=== PATIENT | male | born 1945 | race Caucasian/White ===

== ENCOUNTER 2016-11-24 16:39 | Inpatient (IN) | payer BC, SELFPAY ==
[~2016-11-24] VITALS: Ht 185.4 cm; Wt 103.5 kg
[2016-11-24 18:30] VITALS: BP 139/92
[2016-11-24 19:08] LABS: ABG BASE EXCESS -1.1 (-2.0-2.0); ABG HCO3 22.3 MEQ/L (22.0-26.0); ABG PARTIAL PRESSURE CO2 33.7 mmHg (35.0-45.0); ABG PARTIAL PRESSURE O2 83.4 mmHg (75.0-100.0); ABG STANDARD HCO3 23.5 MEQ/L (22.0-26.0); ABG TOTAL CO2 23.3 MEQ/L (23.0-31.0); ABG pH (ARTERIAL) 7.438 UNITS (7.350-7.450)
[2016-11-24] MEDS ORDERED: diltiaZEM 125 MG in NS 100 ML IV SCH (19:45)
[2016-11-24 20:00] VITALS: BP 122/62
[2016-11-24] MEDS ORDERED: VITA500046 PO (20:16)
[2016-11-24] MEDS ORDERED: ASPI1TAB15 PO (20:16)
[2016-11-24 21:00] VITALS: BP 129/84
[2016-11-24] MEDS ORDERED: CHLORHEXIDINE GLUCONATE 0.12 % 15ML UDC (PERIDEX ORAL RINSE) MT SCH (21:00)
[2016-11-24 22:00] VITALS: BP 115/73
[2016-11-24 23:00] VITALS: BP 99/66
[2016-11-24] MEDS ORDERED: ENOXAPARIN 100MG/1ML SYRINGE (J1650) SC ONE (23:00)
[2016-11-25] VITALS (13 sets, daily range): BP systolic 89–136; BP diastolic 55–85
--- NOTE | 2016-11-25 00:22 | HPE ---
DATE OF ADMISSION: 11/24/2016 PRIMARY CARE PROVIDER: None. CHIEF COMPLAINT: Altered mental status. HISTORY OF PRESENT ILLNESS: Patient is a 71-year-old male with no significant past medical history who passed out [place]. Patient reported feeling lightheaded just before; however, he was levy enough because someone caught him and lowered him down. He lost consciousness for a few seconds; however, when he woke up he was confused and noncoherent for a while. His at the bedside also reported that he had bitten his tongue as well. She also mentioned that in the month of July patient had passed out at the time and it was discovered that his blood sugar was low. He had Holter monitoring for 24 hours during which time an irregular heart beat was discovered. Patient was recommended to followup with a marketing and public relations manager, which he is yet to accomplish. reports that he does not take medications and avoids it at any cost. He denies currently any headache or dizziness and no head trauma. No shortness of breath, chest pain, cough, fever, chills. REVIEW OF SYSTEMS: 10-point systems assessed are negative except listed above in history of present illness (HPI). PAST MEDICAL HISTORY: Hypoglycemia. PAST SURGICAL HISTORY: None. FAMILY HISTORY: Many cancers including prostate, breast, bone, liver and a deep venous thrombosis (DVT) in a brother. SOCIAL HISTORY: Patient is an ex-smoker, quit 30 years ago. Drinks a few beers daily. Denies recreational drug use. He is , has five children, all grown up. 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 ALLERGIES TO MEDICATIONS: None. LIST OF MEDICATIONS: - baby aspirin - vitamin D PHYSICAL EXAMINATION: VITAL SIGNS: Blood pressure 129/84, pulse 94, respiratory rate 18, oxygen saturation 98% in room air, temperature 97.3 degrees Fahrenheit. GENERAL: He is alert, oriented to person, place, time and circumstance, no distress. HEENT: Pupils are equal, round and reactive to light. Extraocular muscles are intact. Anicteric sclerae. Mucous membranes are moist. Neck is supple, nontender. No jugular venous distention (JVD) or adenopathy noted. CARDIOVASCULAR SYSTEM: S1, S2 present with irregular rate. No carotid bruit. Pulses are palpable in all extremities. RESPIRATORY SYSTEM: Lungs are clear to auscultation bilaterally. GASTROINTESTINAL: Abdomen is soft, nontender, nondistended. Bowel sounds are normal. No guarding or rebound. RECTAL: Exam deferred. GENITOURINARY: Exam deferred. MUSCULOSKELETAL SYSTEM: No edema, cyanosis or calf tenderness. SKIN: Warm, dry, acyanotic without rash. LABORATORIES: Hematology: White blood cell count 8.3, hemoglobin 15, hematocrit 42, platelets 201. Coagulopathy: INR 1.10, PT 10.6. Troponin less than 0.017 and less than 0.02. Chemistry is within normal limits. BNP 529. Anion gap 14. Liver function tests within normal limits. EKG is atrial fibrillation at 125 beats per minute. Echocardiogram is pending, ordered. Electroencephalogram (EEG) ordered as well. IMPRESSION: Includes: 1. Syncope. 2. Suspect seizure as well. 3. New onset atrial fibrillation. 4. History of hypoglycemia. 5. History of obesity. PLAN: Patient is admitted to intensive care unit (ICU). Continued intravenous (IV) Cardizem drip at 5 mg/h to be titrated as needed either up or down to maintain a heart rate less than or equal to 95. He was given a dose of Lovenox. CHADS2 score is 0, which puts him at a low risk for CVA. Business Process Manager, Dr. Poe has been consulted. Case discussed with him. He will see the patient in the morning. Please followup troponin in the morning. Deep venous thrombosis (DVT) prophylaxis with Lovenox. Consider consulting neurology if EEG is remarkable.
[2016-11-25 04:45] LABS: MEAN CORPUSCULAR HEMOGLOBIN 32.4 pg (27.0-33.0); MEAN CORPUSCULAR HGB CONC 34.8 g/dl (32.0-36.5); MEAN CORPUSCULAR VOLUME 93.1 fl (80.0-96.0); RED CELL DISTRIBUTION WIDTH 13.8 % (11.5-14.5); WHITE BLOOD COUNT 7.6 K/mm3 (4.0-10.0)
[2016-11-25 05:05] LABS: ANION GAP 5 MEQ/L (8-16); BLOOD UREA NITROGEN 12 MG/DL (7-18); CALCIUM LEVEL 8.1 MG/DL (8.8-10.2); CARBON DIOXIDE LEVEL 29 MEQ/L (21-32); CHLORIDE LEVEL 109 MEQ/L (98-107); CREATININE FOR GFR 1.04 MG/DL (0.70-1.30); GLOMERULAR FILTRATION RATE > 60.0 (>49); GLUCOSE, FASTING 105 MG/DL (80-110); POTASSIUM SERUM 4.2 MEQ/L (3.5-5.1); SODIUM LEVEL 143 MEQ/L (136-145)
[2016-11-25] MEDS ORDERED: METOPROLOL TART 25 MG TABLET PO ONE (07:15)
[2016-11-25] MEDS ORDERED: METOPROLOL TART 25 MG TABLET PO SCH ×3 (09:00→21:00)
[2016-11-25] MEDS ORDERED: ENOXAPARIN 30 MG/0.3 ML SYR (J1650) SC SCH (09:00)
[2016-11-25] MEDS ORDERED: ASPIRIN 81 MG ENTERIC TAB PO SCH (09:00)
--- NOTE | 2016-11-25 11:23 | CR ---
DATE OF CONSULTATION: 11/25/2016 REFERRING PHYSICIAN: Dr. Barillas REASON FOR CONSULTATION: Loss of consciousness. HISTORY OF PRESENT ILLNESS: Umesh Estrada is a 71-year-old man who was at his baseline state of health until yesterday when he was at [employer]. He was in his backyard with his friend and grandson. He suddenly felt lightheaded and dizzy and passed out. His friend was able to catch him and ease him to the ground. He stated that he had foaming his mouth and bit his tongue. There was no shaking. He does not know whether his body was stiff. He woke up in the ambulance. He was unconscious for 30 to 45 minutes in total. He states that in July 2016 at work he had whole body shakes, including his torso, arms and legs without loss of consciousness. It lasted for 30 minutes. Five or six years ago he had an episode of seizure. He lost consciousness for 5 hours. He states that he had tongue biting and foaming of his mouth. He was diagnosed with a generalized tonic-clonic seizure at that time. He is not sure whether he had stiffness or shaking of his body at that time. He saw a neurologist, Dr. Cohen, in [place], [place]. All of his tests were normal. His heart testing was also normal at that time. He was found to have low blood sugar. His blood sugar was 19 on one occasion 2 hours after he had a glucose tolerance test. In July 2016 he had a Holter monitor for 48 hours. He was found to have irregular heartbeat. Now he has been found to have atrial fibrillation. This was likely the case in July 2016. No medications were started. He is yet to followup or see a software developer consultant. PAST MEDICAL HISTORY: Hypoglycemia FAMILY HISTORY: Significant for prostate, breast, bone, and liver cancer. Brother had deep vein thrombosis (DVT). SOCIAL HISTORY: He quit smoking 30 years ago. He drinks a few beers daily. He denies illicit drugs. 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 PAST SURGERIES: None. ALLERGIES: None. HOME MEDICATIONS: - aspirin 81 mg by mouth daily - vitamin D PHYSICAL EXAMINATION: Blood pressure 121/65, pulse 78, respiratory 18, temperature 97.6, 98% saturation on room air. HEART: Irregularly irregular. LUNGS: Clear to auscultation. No pedal edema. Peripheral pulses are palpable. MUSCULOSKELETAL: No gross musculoskeletal abnormalities. EARS, NOSE, THROAT: Examination is within normal limits. NEUROLOGIC EXAMINATION: The patient is awake, alert, oriented to place, person and time. Normal recent and distant memory. Normal speech, comprehension and repetition. No tremor. No dysmetria. Extraocular muscles are intact. No facial weakness. Tongue and uvula are midline. 5/5 strength in all four extremities. Deep tendon reflexes are 2+ throughout. Normal sensation. Gait is normal. ASSESSMENT 1. Episodes of passing out, possibly related to low blood sugar. There is concern for seizures. 2. New-onset atrial fibrillation. PLAN 1. EEG as an outpatient. 2. The patient can followup with his neurologist, Dr. Cohen, as he lives in [place], [place]. He is aware that he should not be driving. 3. He must see cardiology. 4. Antiepileptic medication only if his EEG is suggestive of epilepsy. Hypoglycemia can induce syncope and his hypoglycemia needs to be addressed first.
[2016-11-25] MEDS: METOPROLOL TART 25 MG TABLET PO SCH ×2 (12:11→18:12)
--- NOTE | 2016-11-25 13:48 | ECHO ---
DATE OF STUDY: 11/25/2016 TWO-DIMENSIONAL ECHOCARDIOGRAM REFERRING PHYSICIAN: Dr. Barillas and Dr. Jensen INDICATION: Atrial fibrillation and syncope. Patient measures 73 inches and weighs 228 pounds. DIMENSIONS: IVS 1.2 LV 4.5 LVPW 1.2 LA 4.5 Aorta 3.6 Ascending aorta 3.5 RV 3.5 in apical four-chamber view LV systolic 3.0 FINDINGS: The study is of good technical quality. The patient is in atrial fibrillation with controlled rate. Left ventricle is of normal size. There is global hypokinesis with overall estimated EF around 45%. No segmental wall motion abnormalities are noted. Mild LVH is present. Right ventricle appears to be mildly dilated but normally contractile. Both atria are enlarged. Left atrial volume index is 38 ml/m2 corresponding to moderate left atrial enlargement. Aortic, mitral, tricuspid and pulmonic valves were all well seen and appear normal. No pericardial effusion is noted. Inferior vena cava is dilated and there is no appreciable collapse with respiration indicative likely significantly elevated central venous pressure. Aortic root, aortic arch appear normal. Abdominal aorta was not visualized. Doppler interrogation reveals no aortic stenosis or insufficiency. There is trace mitral and trace tricuspid insufficiency. Calculated pulmonary artery pressure is within normal limits even assuming elevated CVP. But quality of TR jet was poor and this should not be considered overly reliable. Pulmonic valve is functionally competent. Evaluation of diastolic function is inconclusive due to underlying atrial fibrillations. But tissue Doppler velocity of mitral annulus are relatively preserved (E prime septal 9.3 cm/sec, E prime lateral 10.5 cm/sec). CONCLUSIONS: 1. Study is of good technical quality. 2. Normal LV size with mild LVH and approximately moderate LV systolic dysfunction that is global in nature. 3. No significant valvular disease. 4. Biatrial enlargement. 5. Elevated central venous pressure. 6. Pulmonary artery pressure is not reliably determined. COMMENT: SBE prophylaxis is not recommended. CC: Ishaan Copeland MD - [facility]
--- NOTE | 2016-11-25 15:00 | IPN ---
DATE OF SERVICE: 11/25/2016 PRIMARY CARE PROVIDER: Rosemarie Merino PRODUCTION MACHINE COMPUTER OPERATOR: Dr. Copeland Patient seen and examined. No acute events overnight. Patient denies any chest pain, pressure, discomfort, fevers, or chills. No further syncopal episode. Denies any chest pain, pressure, or discomfort. Tolerating oral. No lightheadedness. No nausea or vomiting. As per patient does report tongue biting as per patient, patient had a grand mall seizure about 3-4 years ago, was contributing to hypoglycemia. Patient does not have diabetes, but has been suspected to have some kind of pancreatic disorder with intermittent hypoglycemic, instructed to modify diet to small frequent meals. Patient had a full work-up including abdominal CT about 3-4 years ago. About 3 months ago patient had an episode of lightheadedness suspected to be also hypoglycemia, but never verified taking some oral with food with resolution and patient during this episode did not notice any tonic-colonic movement, but does report a tongue biting. Finger stick and [facility] has been negative. Patient had just finished pancakes and well as syrup breakfast. Patient was found to have atrial fibrillation with regular rate not on any beta jordi or anticoagulation. In the past was following with cardiology. No history of stoke. VITAL SIGNS: Temperature 97.8, pulse 87, respirations 16, blood pressure 118/80, pulse oximetry 97% on room air. LABORATORY DATA: WBC 7.6, hemoglobin and hematocrit 14.9 over 42.8, platelets 169. Chemistry: Sodium 143, potassium 4.2, chloride 109, bicarbonate 29, BUN 12, creatinine 1.04. Troponin negative times two. Thyroid function still pending. PHYSICAL EXAMINATION: GENERAL: Patient alert and oriented times three, in no acute distress. HEENT: Normocephalic, atraumatic. PULMONARY: Bilaterally clear to auscultation. CARDIAC: Irregular irregular, non-tachycardia, no murmurs detected. ABDOMEN: Soft, nontender, nondistended. Positive bowel sounds. EXTREMITIES: No edema bilateral lower extremities. ASSESSMENT AND PLAN: This is a 71-year-old male patient with no significant past medical history. Questionable hypoglycemia history with question seizure due to hypoglycemia presented with syncope, possible seizure. PROBLEMS: 1. Syncope. Possibly secondary to seizure, might be related to hypoglycemia, but has no documented low sugar. Patient will need further outpatient monitoring and work-up. Syncope work-up including MRI has been ordered. Outpatient followup with neurology. Neurology has been consulted. Outpatient EEG. Hold off antiepileptic drugs prior to confirmation with EEG. Avoid driving. Neuro checks. 2. New onset atrial fibrillation. Patient has a MAULIK-VAS score of 1. We will recommend putting the patient on 81 of aspirin and metoprolol. Patient has been weaned off Cardizem drip, currently on metoprolol. 3. History of hypoglycemia. Will need further outpatient work-up given it could be the potential cause of syncope and seizure. 4. Obesity complicating care. Deep venous thrombosis (DVT) prophylaxis. Lovenox subcutaneous. DISPOSITION: Planning pending cardiology and neurology followup. Likely discharged when MRI and echoes are complete.
--- NOTE | 2016-11-25 15:31 | CR ---
DATE OF CONSULTATION: 11/25/2016 REFERRING PHYSICIAN: Dr. Jensen I was asked to see Mr. Estrada because of syncopal event and atrial fibrillation. He is a pleasant 71-year-old male who has minimal past medical history. He presented to initially emergency room at [facility] on 11/24/2016 after he suffered a loss of consciousness at home. [place] [address] and apparently because the weather was not good, he had a rather prolonged breakfast that was quite heavy. After about 2 hours of sitting or so, he actually went outside and was doing some light work. He was on his feet approximately 15 minutes when he suddenly realized that he was discoordinated and he was not able to perform the work that he was doing, and suddenly felt unwell. He managed to tell his family that he was not feeling well but then lost consciousness. He actually was caught so he did not fall to the ground. He apparently was incoherent for a prolonged period of time, at least 15 minutes or so, even though true loss of consciousness was probably quite brief. The family reportedly did not notice any tonic-clonic seizure activity. There was no loss of bowel or urine control, but he bit his tongue to some degree. On arrival of emergency medical service representative (EMT), he was alert but was not completely oriented. His vital signs were unremarkable. There was no extreme lila or tachycardia documented and blood pressure was in normal range. On arrival to emergency room in [facility], his blood pressure was documented at 101/72 and heart rate 113, he was saturating 96%. He was briefly evaluated and transferred to our facility. He was initially started on IV Cardizem drip for atrial fibrillation with rapid ventricular response (RVR) but then it was discontinued this morning and he was started on metoprolol. At the time of my interview, the patient feels well. He denies any palpitations, feeling hungry, diaphoresis or chest pain prior to loss of consciousness. The patient does report one similar episode approximately 5 years ago. Back then , he apparently had tonic-clonic seizure. The scenario was similar to the event yesterday. He'd had a large breakfast at his cottage and then he went fishing with his sons. They did not make it very far from the dock when he felt unwell, he wanted to drink some water and then while standing in a boat, collapsed. He reportedly had extensive cardiac evaluation by Dr. Copeland that included echocardiogram, stress testing and prolonged monitoring without any abnormality found. He was subsequently seen by neurology, Dr. Cohen, in [place], who found no evidence for seizure activity. It was suggested that the event was due to hypoglycemia. He was seen by retail advisor and had severe hypoglycemia without LOC 2 hours into OGTT. 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 He noted that both his upper and lower extremities and torso developed uncontrollable but fine tremor. He got really alarmed, but because he felt otherwise well, he did not panic. He took something sweet to eat and went to see his retail advisor. By the time he reached the office, he did not have any problems. Glucose at that time was normal. He was then seen for a Holter monitor because irregular heartbeat was documented during the physical exam and apparently atrial fibrillation was diagnosed. He was offered anticoagulation and referral to cardiology, but he decided to wait until he saw his primary care physician around early October. Again, he was left on aspirin only and referral to Dr. Copeland was made but the appointment did not occur as yet. PAST MEDICAL HISTORY: 1. He has a history of prostate biopsy for elevated prostate-specific antigen (PSA) and apparently 1 out of 12 samples was positive for cancer with low Apurva score. 2. He reports in the last few office visits, his blood pressure was borderline elevated, but he was never formally diagnosed as having hypertension. 3. He denies diabetes, thyroid problems, history of stroke, history of bleeding problems. PAST SURGICAL HISTORY: Negative. SOCIAL HISTORY: The patient is . He is the father of five children. He used to smoke but quit approximately 30 years ago. He has typically two drinks a day. Denies any excessive alcohol use recently. CPA. FAMILY HISTORY: He is out of 11 children. Apparently there was a lot of prostate and breast cancer in his brothers and sisters respectively. No first-degree relatives with stroke, atrial fibrillation or coronary artery disease. OUTPATIENT MEDICATIONS: - aspirin 81 mg a day - vitamin D 5000 units a day ALLERGIES: No allergies. REVIEW OF SYSTEMS: No recent fever, chills, nausea, vomiting, diarrhea. No palpitations. No syncope, near syncope other than as per history of the present illness. No chest pain. No history of bleeding problems. No unusual headaches. No orthopedic issues. Genitourinary symptoms are negative, but he had prostate cancer as above. No peripheral edema. No skin lesions. The rest is negative. PHYSICAL EXAMINATION: Mr. Estrada is a pleasant man who appears actually younger than his calendar age. Last set of vital signs: Blood pressure 121/65, heart rate in 70s. He is afebrile. Saturation 98% on room air. HEENT is unremarkable. His jugular venous pressure (JVP) is not elevated. No carotid bruit. Lungs are clear to auscultation with good air movement. Heart: Exam reveals irregular rhythm. I do not appreciate any gallop, rub or murmur. Apical impulse is not displaced. Abdomen is soft. No tenderness. No hepatosplenomegaly. Bowel sounds are positive and good quality. Extremities have good peripheral pulses and no peripheral edema. Neurologically he is intact. LABORATORY DATA: Normal CBC, normal basic metabolic panel, troponin negative times three, considering labs from [facility], his BNP was slightly over 500 at [facility]; it was not repeated in our facility. There are several ECGs, all from [facility] and all revealing atrial fibrillation with mildly uncontrolled rate with heart rates just in the 100-130 range and no nonspecific ST-T abnormalities. Chest x-ray is unremarkable and CT of the head was also interpreted as an unremarkable. Echocardiogram performed earlier today revealed normal left ventricular (LV) size with approximately moderate global LV systolic dysfunction, no significant valvular disease and moderate biatrial enlargement (left atrial volume index 38 mL per meter square). ASSESSMENT AND PLAN: Mr. Estrada is a 71-year-old man who presented with syncopal event. The etiology at this point is not completely clear, but it does sound to me that the orthostatic mechanism was likely. Undoubtedly atrial fibrillation with probably uncontrolled rate contributed. 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 At this point, I recommend the patient gets full anticoagulation. Even though his CHADS-Vasc score is positive only for age, but he also has reduced LV systolic function and probably hypertension. Consequently, I think apixaban or similar novel anticoagulation (NOAC) is appropriate. I recommended to the patient that he discontinues his daily aspirin use. We will continue rate control, and I agree with using metoprolol. He is currently on 25 mg every 6 hours with holding parameters, and this approach seems to be effective. I would recommend to continue monitoring on telemetry at least one or two more days. Provided no further arrhythmias will be seen, he can be discharged home while rate controlled. He already has scheduled followup with Dr. Copeland in [place], and I will make sure that he learns about this situation. Further management will depend on his preference. In my opinion, use of antiarrhythmics to be followed by DC cardioversion or even atrial fibrillation ablation can certainly be considered. I will follow the patient with you while he stays in the hospital. Copies To: Dr. Ishaan Copeland, [facility], [place], [place] Dr. Roman Merino in [facility]
[2016-11-25] MEDS: APIXABAN 5 MG TAB (ELIQUIS) PO SCH (20:01)
[2016-11-26] VITALS: BP 112/62
[2016-11-26] MEDS: METOPROLOL TART 25 MG TABLET PO SCH ×2 (00:17→05:23)
[2016-11-26 04:00] VITALS: BP 122/68
[2016-11-26 04:37] LABS: MEAN CORPUSCULAR HEMOGLOBIN 32.5 pg (27.0-33.0); MEAN CORPUSCULAR HGB CONC 34.7 g/dl (32.0-36.5); MEAN CORPUSCULAR VOLUME 93.8 fl (80.0-96.0); RED CELL DISTRIBUTION WIDTH 13.7 % (11.5-14.5); WHITE BLOOD COUNT 5.6 K/mm3 (4.0-10.0)
[2016-11-26 05:13] LABS: ANION GAP 7 MEQ/L (8-16); BLOOD UREA NITROGEN 15 MG/DL (7-18); CALCIUM LEVEL 8.3 MG/DL (8.8-10.2); CARBON DIOXIDE LEVEL 26 MEQ/L (21-32); CHLORIDE LEVEL 112 MEQ/L (98-107); CREATININE FOR GFR 1.12 MG/DL (0.70-1.30); GLOMERULAR FILTRATION RATE > 60.0 (>49); GLUCOSE, FASTING 105 MG/DL (80-110); MAGNESIUM LEVEL 2.3 MG/DL (1.8-2.4); SODIUM LEVEL 145 MEQ/L (136-145); T UPTAKE 38 % (33-40); THYROXINE (T4) 6.1 UG/DL (4.5-12.0)
[2016-11-26 05:23] VITALS: BP 122/68
--- NOTE | 2016-11-26 07:40 | IPN ---
DATE: 11/26/2016 Mr. Estrada had a good night. He feels good this morning. There were no unusual events on telemetry. His heart rate is mostly reasonably rate controlled, even though he gets mildly tachycardic at times. VITAL SIGNS: Blood pressure 122/68. Heart rate around 90 and 80 when I saw him. He is afebrile. Saturation 99% in room air. His fluid balance approximately is 500 negative yesterday. Weight has not been documented this morning as yet. He is alert and oriented and appropriate. His jugular venous pulse (JVP) is not elevated. Lungs are clear to auscultation. Heart exam reveals irregularly irregular rhythm. I do not appreciate any murmur or gallop or rub. Abdomen is obese, but soft. There is no peripheral edema. Neurologically, he is intact. Laboratory-daigle, his CBC is normal and basic metabolic panel is also normal. TSH is 1.5. Troponin has been negative. ASSESSMENT AND PLAN: Mr. Estrada is a 71-year-old man who presented with syncopal event. I suspect that it was a principally orthostatic event precipitated by underlying atrial fibrillation with rapid ventricular response. His heart rate is now better controlled on 100 mg of metoprolol daily. Even though it is not perfect, I think it is certainly acceptable. He has been started on Apixaban instead of previous aspirin. It is mostly because of his reduced left ventricular ejection fraction by echocardiogram, estimated at 40-45%. 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 Provided patient can ambulate on telemetry without difficulty, I believe that he can be discharged home toward the end of the day today. I will contact Dr. Copeland in [place] who is his assembler mechanical ordnance to make sure he gets an early followup appointment. I explained to the patient that he should avoid alcohol for the foreseeable future. I would also recommend that he avoids prolonged standing.
[2016-11-26] MEDS ORDERED: ELIQ5TAB PO (07:42)
[2016-11-26] MEDS ORDERED: LOPR1TAB6 PO (07:42)
[2016-11-26 08:00] VITALS: BP 129/85
[2016-11-26] MEDS: APIXABAN 5 MG TAB (ELIQUIS) PO SCH (09:01)
--- NOTE | 2016-11-26 10:18 | REP ---
Clinical: Seizure. Technique: Standard noncontrast MR sequencing of the brain. Findings: A very small focus of hyperintensity is identified on T2 and FLAIR sequences in the subcortical white matter in the left posterior parietal lobe which may reflect area of focal cortical dysplasia (FCD). Hernandez-white differentiation is otherwise normal. The ventricles, sulci, and cisterns are symmetric and normal. There is no evidence for acute intracranial hemorrhage or mass/mass effect. Midline and midbrain structures are intact and symmetric. Sinuses are within normal limits. The bilateral orbits appear normal. Calvarium is intact. Diffusion and ADC sequences without evidence for acute infarction. 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 Otherwise unremarkable noncontrast MRI of the brain. Signed by Leobardo Love MD 11/26/2016 10:10 A
--- NOTE | 2016-11-26 10:43 | ECGEPIP ---
Stationary ECG Study [facility] Test Date: 2016-11-26 Pat Name: ZAYNAB PICKETT Department: Room: [place] [address] Gender: M Integrity Analyst: BOBBY : 1945 Requested By: Wilberto Bustillo Order Number: [id number] Reading MD: Cori Moise Measurements Intervals [place] Rate: 89 P: NE: 0 QRS: 33 QRSD: 110 T: 14 QT: 368 QTc: 449 Interpretive Statements NSR with RUNS aFIB, PVC BORDERLINE VOLTAGE NO PRIOR ABNORMAL RHYTHM ECG Electronically Signed On 11-26-2016 10:43:13 EDT by Cori Moise
[2016-11-26 12:45] VITALS: BP 116/71
--- NOTE | 2016-11-26 14:55 | DSES ---
DATE OF ADMISSION: 11/24/2016 DATE OF DISCHARGE: 11/26/2016 PRIMARY CARE PROVIDER: Rosemarie Merino. HAT AND CAP DRYING ROOM ATTENDANT: Dr. Segovia. INPATIENT HAT AND CAP DRYING ROOM ATTENDANT: Dr. Bustillo. NEUROLOGIST: Dr. Cohen. INPATIENT NEUROLOGIST: Dr. Ji. FINAL DIAGNOSES: 1. Syncope, possible seizure. 2. New onset atrial fibrillation. 3. History of hypoglycemia. 4. Obesity. HISTORY OF PRESENT ILLNESS: This is a 71-year-old male patient with no significant past medical history who, while having fun with the family reported feeling lightheaded just prior and family caught him and lowered him down, subsequently with loss of consciousness for a few seconds. Wakeup was confused and not coherent for a while. reported the patient biting his tongue. Did not notice any tonoclonic movements. The patient had an episode of passing out about 3 or 4 years ago, was tonoclonic, had a [place] mall seizure possibly due to low glucose. He subsequently had a full workup including CT scan of the abdomen. Was advised to have small frequent meals. The patient also had a recent episode of lightheadedness about 3 months ago. A Holter monitor shows irregular heart beat and was recommended to followup with cardiology, which as yet to be accomplished. The patient currently was not taking any medication on admission. Denies any headache, lightheadedness or trauma. Denies any shortness of breath, fevers or chills. HOSPITAL COURSE: The patient was admitted to the hospital and put on telemetry monitoring. Initially on Cardizem drip, later bridged to metoprolol. Cardiology was consulted as well as neurology. Echo was done. The patient was placed on anticoagulation and metoprolol. The patient's tachycardia has improved, currently is rate controlled. Cardiac enzyme was negative. Thyroid function was negative as well. Echo shows mild reduction of ejection fraction. MRI of the brain was also done. Neurology was consulted. The patient's glucose was monitored. The patient currently returned to baseline, able to ambulate in no acute distress, ready for discharge for further care as an outpatient. VITAL SIGNS: Temperature 98, pulse 82, respiration 20, blood pressure 116/71, pulse ox 98% in room air. GENERAL: The patient alert, oriented times three in no acute distress. HEENT: Normocephalic atraumatic. PULMONARY: Bilateral clear to auscultation. CARDIAC: Irregular, non-tachycardia. No murmur appreciated. ABDOMEN: Soft, nontender. Positive bowel sounds. Obese. EXTREMITIES: No edema bilateral lower extremities. LABORATORY: WBC 5.6. Hemoglobin and hematocrit 15/43.7, platelets 171. Chemistry: Sodium 145, potassium 4, chloride 112, bicarbonate 26, BUN 15, creatinine 1.12. Cardiac enzymes are negative times two. DISCHARGE MEDICATIONS: - Eliquis 5 mg by mouth twice a day - metoprolol 50 mg by mouth twice a day - vitamin D 5000 units by mouth daily - aspirin has been on hold DISCHARGE INSTRUCTIONS: The patient is instructed to follow with primary care provider in 7 days, lay out maker in 7-10 days as well as neurologist in 10 days. Consider outpatient electroencephalogram (EEG). Avoid driving. Return to the hospital if symptoms worsen or recurs. MTDD
[2016-11-26] MEDS ORDERED: METOPROLOL TART 50 MG TAB PO SCH (21:00)
--- NOTE | 2016-11-30 20:54 | EEG ---
DATE OF PROCEDURE: 11/26/2016 REFERRING PHYSICIAN: Mirta Barillas MD DIAGNOSIS: Syncope / seizure. EEG #: [id number] INTERPRETATION: The patient was noted to be in awake and drowsy states during this EEG. Resting awake background rhythm consisted of well-formed posterior dominant rhythm with anterior/posterior gradient comprising of 9 Hz alpha activity measuring 15 - 40 microvolts in amplitude, which was symmetric and reactive to eye opening. Anteriorly, low voltage and mixed frequency activity was noted. Attenuation of posterior dominant rhythm was seen during transition to drowsiness. Stage I and II sleep were reviewed and was symmetric bilaterally. Hyperventilation remained unremarkable. Photic stimulation at 3 - 30 Hz elicited symmetric photic driving especially at mid frequencies. EKG revealed irregular heartbeat and atrial fibrillation. No focal, lateralizing or epileptiform abnormalities were seen. No clinical or electrographic seizures were recorded. CONCLUSION: This EEG in awake, drowsy states, stage I and II sleep is within normal limits. EKG revealed atrial fibrillation.
== END 2016-11-26 14:10 | disposition home or self-care (01) | DRG 201 ==
LOC: M ICU 18:26
PROVIDERS: ADMIT Hospitalist; ATTEND Hospitalist
DX: I48.91 Unspecified atrial fibrillation (principal); R56.9 Unspecified convulsions; R55 Syncope and collapse; E66.9 Obesity, unspecified; Z79.82 Long term (current) use of aspirin; Z79.899 Other long term (current) drug therapy; Z80.3 Family history of malignant neoplasm of breast; Z80.42 Family history of malignant neoplasm of prostate; Z80.0 Family history of malignant neoplasm of digestive organs; Z87.891 Personal history of nicotine dependence